=== PATIENT | female | born 1995 | race Caucasian/White ===

== ENCOUNTER 2021-03-18 13:44 | Emergency (ER) | payer MEDICAID ==
[~2021-03-18] VITALS: Ht 172.7 cm; Wt 88.4 kg
[2021-03-18 14:01] VITALS: BP 127/82
== END 2021-03-18 15:30 | disposition home or self-care (01) ==
LOC: ER 13:44
DX: I83.92 Asymptomatic varicose veins of left lower extremity (principal); Z88.8 Allergy status to other drugs, medicaments and biological substances
CPT/HCPCS: 93971; 99284